=== PATIENT | male | born 1985 | race African-American/Black ===

== ENCOUNTER 2022-08-05 04:35 | Emergency (ER) | payer OTHER ==
[~2022-08-05] VITALS: Ht 180.3 cm; Wt 79.4 kg
--- NOTE | 2022-08-05 04:46 | NUR ---
PATIENT [id number] FROM [facility] C/O ETOH. PATIENT IS REFUSING TO ANSWER TRIAGE NURSE AND ER MD QUESTIONS. PATIENT VSS. NO ACUTE DISTRESS NOTED. PATIENT IS AROUSABLE TO PAIN. PATIENT CONNECTED TO CARDIAC AND POX MONITOR. WILL CONTINUE TO MONITOR.
--- NOTE | 2022-08-05 05:22 | NUR ---
PT RETURNED TO ER BED [address]
--- NOTE | 2022-08-05 07:10 | NUR ---
RECEIVED PT FROM [facility] NO SOB OR DISTRESS
--- NOTE | 2022-08-05 08:11 | NUR ---
Patient discharged to home in stable condition. Written and verbal after care instructions given. Patient verbalizes understanding of instruction.
[2022-08-05 08:12] VITALS: BP 134/72
== END 2022-08-05 10:44 | disposition home or self-care (01) ==
LOC: ER 04:47
DX: F10.129 Alcohol abuse with intoxication, unspecified (principal); Y90.9 Presence of alcohol in blood, level not specified; R51.9 Headache, unspecified
CPT/HCPCS: 70450-TC; 72125-TC